=== PATIENT | male | born 1985 | race Hispanic/Latino ===

== ENCOUNTER 2023-02-05 22:53 | Emergency (ER) | payer BC | END 2023-02-05 23:55 | disposition home or self-care (01) | LOC: ERS 22:53 | DX: S43.401A Unspecified sprain of right shoulder joint, initial encounter (principal); S50.11XA Contusion of right forearm, initial encounter; W22.8XXA Striking against or struck by other objects, initial encounter ==

== ENCOUNTER 2023-08-30 16:17 | Outpatient (CLI) | payer BC | END 2023-08-30 16:18 | disposition home or self-care (01) | LOC: ULT 16:17 | PROVIDERS: ATTEND Nurse Practitioner Family | DX: R22.41 Localized swelling, mass and lump, right lower limb (principal); R22.2 Localized swelling, mass and lump, trunk | CPT/HCPCS: 76999 ==

== ENCOUNTER 2023-11-05 09:29 | Day surgery (SDC) | payer BC ==
[2023-11-04 09:40] VITALS: BMI 34.2
[2023-11-05] MEDS ORDERED: Sodium Chloride 0.9% 100 ML ONE (10:16)
[2023-11-05] MEDS ORDERED: CEFAZOLIN 2 GM VIAL ONE (10:16)
[2023-11-05] MEDS ORDERED: Ketorolac Tromethamine 30 MG (1 mL) VIAL ONE (10:16)
[2023-11-05] MEDS ORDERED: Acetaminophen 500 MG TAB ONE (10:16)
[2023-11-05] MEDS ORDERED: Lidocaine 1% MPF 2 ML VIAL ONE (10:16)
[2023-11-05 10:46] LABS: #Eosinphils 0.1 thou/uL (0.0-0.7); #Monocytes 0.7 thou/uL (0.11-0.59); #Neutrophils 5.2 thou/uL (1.40-6.50); %Basophils 0.6 % (0.0-1.0); %Eosinophils 1.9 % (0.0-10.0); %Lymphocytes 15.4 % (21.0-51.0); %Monocytes 9.2 % (0.0-10.0); %Neutrophils 72.5 % (42.0-75.0); Hematocrit 44.7 % (42.0-52.0); Hemoglobin 14.4 g/dL (14.0-18.0); Mean Corpuscular HGB CONC 32.2 g/dL (32.0-36.0); Mean Corpuscular Hemoglobin 27.4 pg (27.0-31.0); Mean Platelet Volume 10.9 fL (7.4-10.4); Platelet Count 194 10x3/uL (130-400); RBC Distribution Width 13.7 % (11.5-14.5); Red Blood Cell (RBC) Count 5.26 mill/uL (4.70-6.10); White Blood Cell (WBC) Count 7.2 10x3/uL (4.8-10.8)
[2023-11-05] MEDS ORDERED: Midazolam HCl 2 mg/2 ml Vial ONE (10:46)
[2023-11-05 11:04] LABS: Anion Gap 14 mmol/L (10-20); BUN (Urea Nitrogen) 17 mg/dL (8.9-20.6); Calc. Creatinine Clearance 199 mL/min (70-130); Calcium 9.1 mg/dL (7.8-10.44); Carbon Dioxide 25 mmol/L (22-29); Chloride 107 mmol/L (98-107); Estimated GFR 114; Glucose 98 mg/dL (70-105); Sodium 142 mmol/L (136-145)
[2023-11-05] MEDS ORDERED: Lidocaine 2% PF 5 ML VIAL ONE (13:28)
[2023-11-05] MEDS ORDERED: fentaNYL PF 100 MCG/2 ML SYRINGE ONE ×2 (14:18→16:02)
[2023-11-05] MEDS ORDERED: EPINEPHrine 1 MG/ML VIAL ONE (14:21)
[2023-11-05] MEDS ORDERED: Bupivacaine 0.25% HCL 30 ML VIAL ONE (14:21)
[2023-11-05] MEDS ORDERED: Rocuronium Bromide 10 MG/ML (10ML VIAL) ONE (14:22)
[2023-11-05] MEDS ORDERED: SUCCINYLCHOLINE/SOD CL,ISO/PF 200 MG/10 ML SYRINGE FS ONE (14:22)
[2023-11-05] MEDS ORDERED: PROPOFOL 20 ML ONE (14:52)
[2023-11-05] MEDS ORDERED: SUGAMMADEX SODIUM 200 MG/2 ML VIAL ONE (15:02)
[2023-11-05] MEDS ORDERED: Sevoflurane 250 ML INH ANEST BOTTLE ONE (15:11)
[2023-11-05] MEDS ORDERED: PHENYLEPHRINE-NS 100 MCG/ML 10 ML SYRINGE ONE (16:10)
[2023-11-05] MEDS ORDERED: fentaNYL 50 mcg/mL 1 mL Vial ONE (16:41)
== END 2023-11-05 18:15 | disposition home or self-care (01) ==
LOC: SDC 09:29
PROVIDERS: ATTEND Specialist
PROC: 0HBKXZX Excision of Right Lower Leg Skin, External Approach, Diagnostic (ICD-10-PCS; principal; 2023-11-05)
DX: C49.9 Malignant neoplasm of connective and soft tissue, unspecified (principal); F41.9 Anxiety disorder, unspecified; I10 Essential (primary) hypertension; Z79.899 Other long term (current) drug therapy; Z98.890 Other specified postprocedural states
CPT/HCPCS: 36416; 80048; 85025; 88305; J0171; J0665; J1885; J2001; J2250; J2704; J3010; J3490

== ENCOUNTER 2023-11-17 11:40 | Inpatient (IN) | payer BC ==
[2023-11-17 12:00] LABS: #Monocytes 2.5 thou/uL (0.11-0.59); #Neutrophils 11.6 thou/uL (1.40-6.50); %Basophils 0.3 % (0.0-1.0); %Eosinophils 0.3 % (0.0-10.0); %Lymphocytes 8.8 % (21.0-51.0); %Monocytes 15.9 % (0.0-10.0); %Neutrophils 73.2 % (42.0-75.0); Hematocrit 38.3 % (42.0-52.0); Hemoglobin 12.4 g/dL (14.0-18.0); Mean Corpuscular HGB CONC 32.4 g/dL (32.0-36.0); Mean Corpuscular Hemoglobin 27.2 pg (27.0-31.0); Mean Platelet Volume 9.9 fL (7.4-10.4); Platelet Count 333 10x3/uL (130-400); RBC Distribution Width 13.5 % (11.5-14.5); Red Blood Cell (RBC) Count 4.56 mill/uL (4.70-6.10); White Blood Cell (WBC) Count 15.8 10x3/uL (4.8-10.8)
[2023-11-17] MEDS ORDERED: Ondansetron PF 4 MG/2 ML Vial ONE (12:07)
[2023-11-17] MEDS ORDERED: Morphine 4 MG/ML VIAL ONE (12:07)
[2023-11-17 12:16] LABS: INR-International Normal Ratio 1.2; PTT 38.9 sec (22.9-36.1); Prothrombin Time 14.8 sec (12.0-14.7)
[2023-11-17 12:18] LABS: ALT (SGPT) 25 U/L (8-55); AST (SGOT) 13 U/L (5-34); Albumin 4.1 g/dL (3.5-5.0); Alkaline Phosphatase 77 U/L (40-110); Anion Gap 14 mmol/L (10-20); BUN (Urea Nitrogen) 16 mg/dL (8.9-20.6); Bilirubin, Total 0.7 mg/dL (0.2-1.2); Calc. Creatinine Clearance 0 mL/min (70-130); Calcium 9.3 mg/dL (7.8-10.44); Carbon Dioxide 26 mmol/L (22-29); Chloride 98 mmol/L (98-107); Estimated GFR 91; Globulin 3.7 g/dL (2.4-3.5); Glucose 109 mg/dL (70-105); Potassium 3.4 mmol/L (3.5-5.1); Protein, Total 7.8 g/dL (6.0-8.3); Sodium 135 mmol/L (136-145)
[2023-11-17] MEDS ORDERED: Sodium Chloride 0.9% 100 ML ONE (14:30)
[2023-11-17] MEDS ORDERED: Cefepime 2 GM VIAL ONE (14:30)
[2023-11-17 15:27] LABS: Bacteria/HPF None Seen HPF (None Seen); Bilirubin Negative (Negative); Blood, Urine Negative (Negative); CAUTI Indications for Culture Pelvic or flank pain; Clarity Clear (Clear); Glucose, Urine (Dipstick) Normal (Negative); Ketone, Urine Trace mg/dL (Negative); Leukocyte Negative Leu/uL (Negative); Nitrite Negative (Negative); Protein, Urine (Dipstick) 20 mg/dL (Neg-Trace); RBC/HPF 0-3 HPF (0-3); Squamous Epithelial 0-3 HPF (0-3); Urobilinogen Normal mg/dL (Less than 2); WBC/HPF 0-3 HPF (0-3)
[2023-11-17 15:28] LABS: Specific Gravity, Urine Greater than 1.060 (1.002-1.036)
[2023-11-17 15:30] LABS: Urine Culture Reflex No No
[2023-11-17] MEDS ORDERED: Iopamidol-370 76% 500 ML MDV (1 ML CHARGE) ONE (15:58)
[2023-11-17 16:50] VITALS: BMI 35.9
[2023-11-17] MEDS: Vancomycin (BATCH) 1.5 GM in Premix 1 BAG IVPB SCH (17:01)
[2023-11-17] MEDS: Acetaminophen 325 MG TAB PO PRN (17:01)
[2023-11-17] MEDS: Potassium Chloride 20 MEQ TAB PO SCH (17:01)
[2023-11-17] MEDS: HYDROcodone/Acetaminophen 5/325 mg Tablet PO PRN (17:03)
[2023-11-17] MEDS: Vancomycin 1 GM in Premix 1 BAG IVPB SCH (18:40)
[2023-11-17] MEDS: Famotidine 20 MG TAB PO SCH (21:18)
[2023-11-17] MEDS: Temazepam 15 MG CAP PO PRN (22:25)
[2023-11-18] MEDS: Cefepime 2 GM in Sodium Chloride 0.9% 100 ML IVPB SCH (01:55)
[2023-11-18] MEDS: Vancomycin (BATCH) 1.75 GM in Premix 1 BAG IVPB SCH (03:07)
[2023-11-18 05:45] LABS: #Eosinphils 0.2 thou/uL (0.0-0.7); #Monocytes 1.6 thou/uL (0.11-0.59); #Neutrophils 6.9 thou/uL (1.40-6.50); %Basophils 0.3 % (0.0-1.0); %Eosinophils 1.7 % (0.0-10.0); %Lymphocytes 13.3 % (21.0-51.0); %Monocytes 15.5 % (0.0-10.0); %Neutrophils 67.7 % (42.0-75.0); Hematocrit 33.1 % (42.0-52.0); Hemoglobin 10.4 g/dL (14.0-18.0); Mean Corpuscular HGB CONC 31.4 g/dL (32.0-36.0); Mean Corpuscular Hemoglobin 26.8 pg (27.0-31.0); Mean Corpuscular Volume 85.3 fl (78.0-98.0); Mean Platelet Volume 10.3 fL (7.4-10.4); Platelet Count 253 10x3/uL (130-400); RBC Distribution Width 13.6 % (11.5-14.5); Red Blood Cell (RBC) Count 3.88 mill/uL (4.70-6.10); White Blood Cell (WBC) Count 10.2 10x3/uL (4.8-10.8)
[2023-11-18 06:13] LABS: Anion Gap 10 mmol/L (10-20); BUN (Urea Nitrogen) 16 mg/dL (8.9-20.6); Calc. Creatinine Clearance 225 mL/min (70-130); Calcium 8.4 mg/dL (7.8-10.44); Carbon Dioxide 27 mmol/L (22-29); Chloride 104 mmol/L (98-107); Estimated GFR 117; Glucose 108 mg/dL (70-105); Potassium 3.7 mmol/L (3.5-5.1); Sodium 137 mmol/L (136-145)
[2023-11-18] MEDS: Sodium Chloride 0.9% 1,000 ML IV SCH (09:58)
[2023-11-18] MEDS ORDERED: Cefepime 1 GM VIAL ONE (13:19)
[2023-11-18] MEDS ORDERED: Sodium Chloride 0.9% 100 ML ONE (13:19)
[2023-11-18] MEDS ORDERED: Midazolam HCl 2 mg/2 ml Vial ONE (13:27)
[2023-11-18] MEDS ORDERED: fentaNYL PF 100 MCG/2 ML SYRINGE ONE (13:27)
[2023-11-18] MEDS ORDERED: SUGAMMADEX SODIUM 200 MG/2 ML VIAL ONE ×2 (13:27→15:40)
[2023-11-18] MEDS ORDERED: PROPOFOL 20 ML ONE (13:27)
[2023-11-18] MEDS ORDERED: Lidocaine 1% PF 5 ML VIAL ONE (13:29)
[2023-11-18] MEDS ORDERED: Rocuronium Bromide 10 MG/ML (10ML VIAL) ONE ×2 (13:29→14:50)
[2023-11-18] MEDS ORDERED: Dexamethasone 4 mg/ml Vial ONE (13:29)
[2023-11-18] MEDS ORDERED: Ondansetron PF 4 MG/2 ML Vial ONE (13:29)
[2023-11-18] MEDS ORDERED: EPINEPHrine 1 MG/ML VIAL ONE (13:32)
[2023-11-18] MEDS ORDERED: Bupivacaine 0.25% HCL 30 ML VIAL ONE (13:33)
[2023-11-18] MEDS ORDERED: ePHEDrine Sulfate 50 MG/10 ML VIAL ONE (14:50)
[2023-11-18] MEDS ORDERED: fentaNYL 50 mcg/mL 1 mL Vial ONE (15:45)
[2023-11-18] MEDS ORDERED: Fentanyl 250 MCG/5 ML VIAL ONE (15:45)
[2023-11-18] MEDS ORDERED: Meperidine HCl/PF 25 MG/ML VIAL SLOW IVP PRN (16:04)
[2023-11-18] MEDS ORDERED: Ondansetron HCl/PF 4 MG/2 ML Vial IVP PRN (16:04)
[2023-11-18] MEDS ORDERED: Promethazine HCl 25 MG/ML VIAL IM PRN (16:04)
[2023-11-18] MEDS: Morphine 4 MG/ML VIAL SLOW IVP PRN (18:31)
[2023-11-18] MEDS: HYDROcodone/Acetaminophen 5/325 mg Tablet PO PRN (20:50)
[2023-11-19 02:39] LABS: Vancomycin, Trough 9.7 ug/mL
[2023-11-19] MEDS: Vancomycin 2 GM in Sodium Chloride 0.9% 500 ML IVPB SCH (03:44)
[2023-11-20] MEDS: cefTRIAXone\\ROCEPHIN 1 GM in Sodium Chloride 0.9% 100 ML IVPB SCH (14:36)
[2023-11-21 11:23] VITALS: BP 149/90; TEMP 98.7
== END 2023-11-21 14:28 | disposition home or self-care (01) | DRG 863 ==
LOC: ERS 11:40 → SURG B 14:55
PROVIDERS: ADMIT Internal Medicine; ATTEND Internal Medicine
PROC: 0J9L0ZZ Drainage of Right Upper Leg Subcutaneous Tissue and Fascia, Open Approach (ICD-10-PCS; principal; 2023-11-18)
PROC: 3E033XZ Introduction of Vasopressor into Peripheral Vein, Percutaneous Approach (ICD-10-PCS; 2023-11-18)
PROC: 0JBL0ZX Excision of Right Upper Leg Subcutaneous Tissue and Fascia, Open Approach, Diagnostic (ICD-10-PCS; 2023-11-18)
DX: T81.41XA Infection following a procedure, superficial incisional surgical site, initial encounter (principal); L02.415 Cutaneous abscess of right lower limb; M96.841 Postprocedural hematoma of a musculoskeletal structure following other procedure; C49.21 Malignant neoplasm of connective and soft tissue of right lower limb, including hip; E87.6 Hypokalemia; F32.A Depression, unspecified; B96.1 Klebsiella pneumoniae [K. pneumoniae] as the cause of diseases classified elsewhere; B96.89 Other specified bacterial agents as the cause of diseases classified elsewhere; Z79.899 Other long term (current) drug therapy; Z98.890 Other specified postprocedural states; Z87.891 Personal history of nicotine dependence; Y83.8 Other surgical procedures as the cause of abnormal reaction of the patient, or of later complication, without mention of misadventure at the time of the procedure
CPT/HCPCS: 36415; 71045; 74177; 80048; 80053; 80202; 81001; 83605; 85025; 85610; 85730; 86850; 86900; 86901; 87040; 87070; 87077; 87186; 87205; 88304; 88305; 88331; 93005; 96361; 96365; 96374; 96375; 97139; J0171; J0665; J0692; J0696; J1100; J2250; J2270; J2405; J2704; J3010; J3370; J3370-JW; J3490; J7030; J7050; Q9967